=== PATIENT | female | born 1990 | race American Indian/Alaskan Native ===

== ENCOUNTER 2017-12-27 08:58 | Emergency (ER) | payer MEDICAID, OTHER ==
[2017-12-27 09:34] LABS: HCG Qualitative,Urine Negative (Negative)
[2017-12-27 09:38] LABS: Bilirubin,Urine NEG (Negative); Blood,Urine SM (Negative); Color,Urine Yellow (Yellow); Mucus,Urine FEW /HPF; Protein,Urine <15 mg/dL mg/dL (Negative)
[2017-12-27 09:41] LABS: Basophils % (Auto) 0.6 % (0.0-1.8); Eosinophils # (Auto) 0.2 K/mm3 (0.0-0.4); Eosinophils % (Auto) 2.3 % (0.0-4.3); Hematocrit 37.2 % (30.3-42.9); Hemoglobin 12.3 gm/dl (10.1-14.3); Lymphocytes # (Auto) 1.9 K/mm3 (1.2-5.4); Lymphocytes % (Auto) 25.5 % (13.4-35.0); Mean Corpuscular HGB Conc 33 % (30-34); Mean Corpuscular Hemoglobin 28 pg (28-32); Mean Corpuscular Volume 85 fl (79-97); Monocytes # (Auto) 0.7 K/mm3 (0.0-0.8); Monocytes % (Auto) 9.4 % (0.0-7.3); Platelet Count 353 K/mm3 (140-440); Red Cell Distribution Width 14.8 % (13.2-15.2)
[2017-12-27 10:01] LABS: Alanine Aminotransferase 19 units/L (7-56); Albumin 3.3 g/dL (3.9-5); BUN/Creatinine Ratio 16; Blood Urea Nitrogen 11 mg/dL (7-17); Calcium 8.8 mg/dL (8.4-10.2); Hemolysis Index 0
--- NOTE | 2017-12-27 11:21 | Emergency Department Report ---
Blank Doc - Documentation Documentation: Patient is a 27-year-old black female who is presenting with left lower quadrant pain for the past 4 days. Patient states she's had some loose stools as well. Patient also states that her menses was slightly heavier than normal but was the normal length. Patient's menses was approximately week ago. Patient denies any fevers nausea vomiting at this time. Brief physical exam patient is very tender with some voluntary guarding with palpating the left lower quadrant. Left wrist is within normal limits the patient will be sent for a CT will be reassessed.
[2017-12-27] MEDS ORDERED: NORCO 5/325 PO ONE (12:11)
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
--- NOTE | 2017-12-27 13:05 | Cat Scan Report ---
FINAL REPORT EXAM: CT ABDOMEN PELVIS W CON HISTORY: LLQ pain TECHNIQUE: CT of the abdomen and pelvis was performed after the administration of intravenous contrast. Subsequently, CT of the abdomen and pelvis was performed in the delayed phase. Reconstructions were included in the coronal and sagittal planes. PRIORS: None. FINDINGS: Lower thorax: The lung bases are clear. The visualized portions of the heart are normal. Liver: The liver is normal in attenuation. No intrahepatic biliary duct dilation. No focal hepatic lesions. Gallbladder/ biliary system: No cholelithiasis. The common bile duct appears nondilated. Spleen: No splenic lesions are seen. Pancreas: No pancreatic lesions are seen. No pancreatic duct dilation. Kidneys: No renal masses, cysts or hydronephrosis. Adrenal glands: No adrenal masses. Vasculature: The abdominal and pelvic vasculature is patent without variant anatomy. Lymph nodes: No enlarged lymph nodes are seen in the abdomen or pelvis. Bowel, mesentery, peritoneum: No bowel obstruction. No free fluid or free air. The appendix is normal. No colonic diverticulosis. Focal inflammatory changes are seen along the anterior aspect of the distal descending colon. Urinary bladder: No filling defects are seen. Pelvis: An IUD is present within the uterus. There is a small volume of free fluid in the pelvis. The uterus and ovaries appear unremarkable. Abdominal wall: No abdominal wall hernia or other subcutaneous findings. Bones: No acute or chronic osseous finding. IMPRESSION: Findings concerning for omental infarct in the left lower abdominal quadrant.
[2017-12-27 14:26] VITALS: BP 137/75
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
== END 2017-12-27 15:05 | disposition home or self-care (01) ==
LOC: ED 08:58
DX: R10.32 Left lower quadrant pain (principal); R19.7 Diarrhea, unspecified; F17.200 Nicotine dependence, unspecified, uncomplicated
CPT/HCPCS: 36415; 74177; 80053; 81001; 81025; 83690; 85025; 99284; Q9967